=== PATIENT | female | born 1985 | race African-American/Black ===

== ENCOUNTER → 2016-08-30 | Outpatient (CLI) | payer OTHER | LOC: COL.RAD 08-29 08:15 | DX: R10.2 Pelvic and perineal pain (principal) ==

== ENCOUNTER → 2017-01-04 | Outpatient (CLI) | payer OTHER | LOC: COL.RAD 12:14 | DX: N97.9 Female infertility, unspecified (principal) | CPT/HCPCS: Q9967 ==